=== PATIENT | male | born 1955 | race Caucasian/White ===

== ENCOUNTER 2021-08-02 04:51 | Emergency (ER) | payer BC ==
[2021-08-02] MEDS: Ondansetron 4 MG Tab.DIS PO ONE (05:03)
[2021-08-02] MEDS: Alum Hydroxide/Mag Hydroxide 15 ML, Lidocaine 2% 15 ML PO ONE ×2 (05:04)
[2021-08-02] MEDS ORDERED: Sodium Chloride 0.9% 10 ML Syringe FLUSH PRN (05:32)
[2021-08-02] MEDS: Labetalol 20 MG/4 ML Syringe IVPUSH STA (05:40)
[2021-08-02] MEDS: Pantoprazole 40 MG Vial IVPUSH ONE (05:40)
[2021-08-02] MEDS: Metoclopramide 10 MG/2 ML SDV IVPUSH STA (05:40)
[2021-08-02] MEDS: hydrALAZINE 20 MG/ML SDV IVPUSH ONE (06:08)
[2021-08-02] MEDS: Morphine 4 MG/ML VIAL IVPUSH STA (06:30)
[2021-08-02] MEDS: LORazepam 2 MG/ML SDV IVPUSH STA (06:31)
[2021-08-02] MEDS: Iopamidol 755 Mg/ML 100 ML Bottle IV ONE (06:49)
[2021-08-02] MEDS: Diltiazem 25 MG/5 ML SDV IVPUSH STA (07:14)
== END 2021-08-02 08:30 | disposition home or self-care (01) ==
LOC: FB.ED 04:51
DX: K52.9 Noninfective gastroenteritis and colitis, unspecified (principal); K57.32 Diverticulitis of large intestine without perforation or abscess without bleeding; D72.829 Elevated white blood cell count, unspecified; I48.91 Unspecified atrial fibrillation; I70.209 Unspecified atherosclerosis of native arteries of extremities, unspecified extremity; R23.4 Changes in skin texture; F10.239 Alcohol dependence with withdrawal, unspecified; K55.1 Chronic vascular disorders of intestine; E78.00 Pure hypercholesterolemia, unspecified; I10 Essential (primary) hypertension; E66.9 Obesity, unspecified; Z68.30 Body mass index [BMI] 30.0-30.9, adult; Z91.010 Allergy to peanuts; Z79.899 Other long term (current) drug therapy
CPT/HCPCS: 36415; 74177; 80053; 82150; 83690; 84484; 85025; 93005; 96374; 96375; 99284; 99284-25; A9270-GY; C9113; J0360; J2060; J2270; J2765; J3490; Q0162; Q9967